=== PATIENT | female | born 1990 | race Caucasian/White ===

== ENCOUNTER 2016-10-26 03:15 | Emergency (ER) | payer BC ==
--- NOTE | 2016-10-26 03:40 | ED NURSING NOTES ---
Clinical Report - Nurses [facility] [address] [place] [address] 10/26/2016 3:17 Patient: MEGHAN VELASCO TRIAGE Triage time 03:25. Acuity: LEVEL 5. --03:32 Romeo Morales R.N. 03:20 10/26/16. BP: 119/73. HR: 72. RR: 16. O2 saturation: 100%. Temp: 98.1 F. Pain level now: 08/18. --03:32 Romeo Morales R.N. Chief Complaint: SKIN RASH and SKIN LESION and POSSIBLE INSECT BITE --03:55 Romeo Morales R.N. Weight: 99.7 kg stated. Height/Length: 68 inches Per Patient. BMI: 33.4. --03:31 Romeo Morales R.N. Medications FLUoxetine HCl Oral (Capsule 10 mg) 1 capsule, at bedtime. --03:29 Romeo Morales R.N. Control Pills. --03:30 Romeo Morales R.N. Allergies No Known Drug Allergy. --03:27 Romeo Morales R.N. History Historian: patient. Accompanied by (boyfriend). Reported as located on the left leg. ( woke up at 0230 with burning pain/stinging and rash/blister on the left lower leg). Treatment SPEECH INSTRUCTOR: None. SOCIAL HX: Never smoker. History of occasional drug use: marijuana. --03:32 Romeo Morales R.N. PAST MEDICAL HX: Immunizations: up-to-date and has received tetanus within 10 years. --03:37 Romeo Morales R.N. PROBLEMS: Depression. --03:29 Romeo Morales R.N. Interventions ID band on patient. To treatment room. --03:32 Romeo Morales R.N. PHYSICAL ASSESSMENT Ambulatory to room. GENERAL / NEURO / PSYCH: Alert. The patient does not appear to be in acute distress. Oriented X 4. RESPIRATORY: Respirations not labored. CVS: Capillary refill less than 2 seconds. Pulses within normal limits. SKIN: Skin is warm. Skin rash on the left leg. Blister on the left leg. --03:35 Romeo Morales R.N. NURSING PROGRESS NOTES Head of bed elevated. Patient identifiers checked. Call light placed in reach. Side rails up x 1. Bed placed in lowest position. Patient ready for evaluation- chart flagged and ED physician notified. --03:33 Romeo Morales R.N. DISPOSITION / DISCHARGE Departure time: 035. Condition at departure: unchanged. No learning barriers present. Discharge instructions provided and reviewed with the patient. Reviewed medication(s) side effects, precautions, dosing and course information. Prescription(s) given to the patient. Patient verbalized understanding. Written instructions provided in Palestinian. The patient was discharged home and accompanied by boyfriend. She left the Emergency Department via private vehicle. Driving (boyfriend). --03:54 Romeo Morales R.N. Locked/Released at 10/26/2016 3:56 by Romeo Morales R.N.
--- NOTE | 2016-10-26 03:40 | ED NURSING NOTES ---
Clinical Report - Nurses [facility] [address] [place] [address] 10/26/2016 3:17 Patient: MEGHAN VELASCO TRIAGE Triage time 03:25. Acuity: LEVEL 5. --03:32 Romeo Morales R.N. 03:20 10/26/16. BP: 119/73. HR: 72. RR: 16. O2 saturation: 100%. Temp: 98.1 F. Pain level now: 08/18. --03:32 Romeo Morales R.N. Chief Complaint: SKIN RASH and SKIN LESION and POSSIBLE INSECT BITE --03:55 Romeo Morales R.N. Weight: 99.7 kg stated. Height/Length: 68 inches Per Patient. BMI: 33.4. --03:31 Romeo Morales R.N. Medications FLUoxetine HCl Oral (Capsule 10 mg) 1 capsule, at bedtime. --03:29 Romeo Morales R.N. Control Pills. --03:30 Romeo Morales R.N. Allergies No Known Drug Allergy. --03:27 Romeo Morales R.N. History Historian: patient. Accompanied by (boyfriend). Reported as located on the left leg. ( woke up at 0230 with burning pain/stinging and rash/blister on the left lower leg). Treatment CARDIOVASCULAR OR NURSE: None. SOCIAL HX: Never smoker. History of occasional drug use: marijuana. --03:32 Romeo Morales R.N. PAST MEDICAL HX: Immunizations: up-to-date and has received tetanus within 10 years. --03:37 Romeo Morales R.N. PROBLEMS: Depression. --03:29 Romeo Morales R.N. Interventions ID band on patient. To treatment room. --03:32 Romeo Morales R.N. PHYSICAL ASSESSMENT Ambulatory to room. GENERAL / NEURO / PSYCH: Alert. The patient does not appear to be in acute distress. Oriented X 4. RESPIRATORY: Respirations not labored. CVS: Capillary refill less than 2 seconds. Pulses within normal limits. SKIN: Skin is warm. Skin rash on the left leg. Blister on the left leg. --03:35 Romeo Morales R.N. NURSING PROGRESS NOTES Head of bed elevated. Patient identifiers checked. Call light placed in reach. Side rails up x 1. Bed placed in lowest position. Patient ready for evaluation- chart flagged and ED physician notified. --03:33 Romeo Morales R.N. DISPOSITION / DISCHARGE Departure time: 035. Condition at departure: unchanged. No learning barriers present. Discharge instructions provided and reviewed with the patient. Reviewed medication(s) side effects, precautions, dosing and course information. Prescription(s) given to the patient. Patient verbalized understanding. Written instructions provided in Sudanese. The patient was discharged home and accompanied by boyfriend. She left the Emergency Department via private vehicle. Driving (boyfriend). --03:54 Romeo Morales R.N. Locked/Released at 10/26/2016 3:56 by Romeo Morales R.N.
--- NOTE | 2016-10-26 03:40 | ED CLINICAL REPORT ---
Clinical Report - Physicians/Mid Levels [facility] [address] [place] [address] 10/26/2016 3:17 Patient: MEGHAN VELASCO Time Seen: 0320. Arrived- By private vehicle. Historian- patient. HISTORY OF PRESENT ILLNESS Chief Complaint: INSECT BITE. This started today and is still present (unchanged). It was abrupt in onset and has been constant but is not gone now. It is described as painful. It has been located on the left knee (lateral). A possible cause has been identified (insect bite maybe a "spider"). Similar symptoms previously: None. Recent medical care: Not recently seen/assessed. REVIEW OF SYSTEMS No fever, chills or difficulty breathing. All systems otherwise negative, except as recorded above. PAST HISTORY See nurses notes. Tetanus immunization status is up-to-date. Medications: Control Pills. FLUoxetine HCl Oral (Capsule 10 mg) 1 capsule, at bedtime. Allergies: No Known Drug Allergy. SOCIAL HISTORY Never smoker. History of occasional drug use: marijuana. No alcohol use. No recent travel. Is a local resident. ADDITIONAL NOTES The nursing notes have been reviewed. PHYSICAL EXAM Vital Signs: 10/26/2016 03:20 BP: 119/73. HR: 72. RR: 16. O2 saturation: 100%. Temp: 98.1 F. Pain level now: 2/10. Blood pressure normal. Oxygen saturation normal. Appearance: Alert. Oriented X3. No acute distress. Eyes: Pupils equal, round and reactive to light. Conjunctivae and eyelids normal. ENT: Ears normal. Nose normal. Pharynx normal. Neck: Neck supple. CVS: Normal heart rate and rhythm. Heart sounds normal. Respiratory: No respiratory distress. Breath sounds normal. Chest nontender. Abdomen: Nontender. No organomegaly. Skin: (small area of Hyperemia to the left lateral knee irregular shape with 2 small areas that seem to coalesce at the edges. Edges are well demarcated. Nonraised. No vesicles. Blanchable. Mild tenderness. No masses. Small area of less hyperemia in the center of the area. no involvement of the palms or soles. o crepitus.). Extremities: Normal external inspection. Extremities nontender. PROGRESS AND PROCEDURES Course of Care: The patient is a pleasant 26-year-old female [place] past medical history presenting for evaluation of rash/lesion to the left lower extremity. At this time differential diagnosis includes insect bite versus cellulitis versus allergic reaction versus early abscess. No signs of fluid collections at this time. Patient is nontoxic. No signs of anaphylaxis. Patient will be managed for the lesion as potential early cellulitis/abscess. Benefits of antibiotic treatment outweigh the risks at this time. Because of the patient's reportbeen a increasedlikelihood ratio of MRSA infection. Patient be treated for the presumed cellulitisand potential MRSA infection with Keflex and Bactrim. Patient as been monitored here in the emergency department and reevaluated and found to be resting in bed and in no acute distress. Patient continues to be doing well and is nontoxic. Patient continues to have no signs of anaphylaxis. Discussed with the patient her workup here in the emergency department include home care, follow-up, and return precautions. All questions have been answered. The patient expressed understanding of these instructions and was agreeable to them. Do not fill patient is to be admitted to the hospital require further emergency department workup/evaluation. Vital signs here in the emergency department and noted to be unremarkable. Disposition: Discharged. Condition: good. CLINICAL IMPRESSION 10/26/2016 03:20 BP: 119/73. HR: 72. RR: 16. O2 saturation: 100%. Temp: 98.1 F. Pain level now: 2/10. Blood pressure normal. Oxygen saturation normal. Cellulitis of the left knee (lateral). INSTRUCTIONS Warnings: GENERAL WARNINGS: Return or contact your physician immediately if your condition worsens or changes unexpectedly, if not improving as expected, or if other problems arise. Specifically return if pain, vomiting, bleeding, breathing difficulty or fever. Your Current Medications: CONTINUE TAKING THE FOLLOWING MEDICATIONS: Control Pills*. FLUoxetine HCl Oral : Capsule 10 mg, 1 capsule at bedtime. Prescription Medications: Bactrim DS 800 mg / 160 mg: take 1 tablet orally every 12 hours for 10 days. No refill. Substitution is permissible. (Disp 20 tabs) Keflex 500 mg: take 1 capsule orally every 8 hours for 10 days. No refill. Substitution is permissible. (disp 30 caps) Hydroxyzine 50 mg: take 1 orally every 8 hours as needed for itching. Dispense twenty (20). No refill. Follow-up: Return to the emergency department as needed. Follow up with your doctor in three days. Reason for referral: recheck today's concerns. Summary of care provided to patient via paper. Screening today revealed the patient's blood pressure to be in the normal range. The patient should follow up with a primary care provider for blood pressure management. Understanding of the discharge instructions verbalized by patient. (Electronically signed by Cristobal Ch Dr. 10/28/2016 5:48)
--- NOTE | 2016-10-28 05:49 | ED MAR SUMMARY ---
..... Medication Administration Record [facility] [address], [place] [id number] Patient: MEGHAN VELASCO Visit ID: [id number] 26y, F Weight: 99.7 kg Height/Length: 68 in BMI: 33.4 ALLERGIES: No Known Drug Allergy
--- NOTE | 2016-10-28 05:49 | ED MED RECONCILIATION SUMMARY ---
Patient: MEGHAN VELASCO Medication Reconciliation Report [facility] VisitID: [id number] [address] [place] [address] 26y, F Registration Date/Time: 10/26/2016 Weight: 99.7 kg Height/Length: 68 in. BMI: 33.4 ALLERGIES: No Known Drug Allergy The patient's Home Medications are listed below: CONTINUE TAKING THE FOLLOWING MEDICATIONS: Control Pills FLUoxetine HCl Oral (10 mg) 1 capsule, at bedtime The source(s) of the original Home Medication information: Not obtained. The following Medications were given to the patient in the Emergency Department: None. The following Medications were prescribed to the patient: Bactrim DS 800 mg / 160 mg: take 1 tablet orally every 12 hours for 10 days. No refill. Substitution is permissible.(Disp 20 tabs) -- Cristobal Ch Dr. Keflex 500 mg: take 1 capsule orally every 8 hours for 10 days. No refill. Substitution is permissible.(disp 30 caps) -- Cristobal Ch Dr. Hydroxyzine 50 mg: take 1 orally every 8 hours as needed for itching. Dispense twenty (20). No refill. -- Cristobal Ch Dr.
--- NOTE | 2016-10-28 05:49 | ED MAR SUMMARY ---
..... Medication Administration Record [facility] [address] [place], [place] [id number] Patient: MEGHAN VELASCO Visit ID: [id number] 26y, F Weight: 99.7 kg Height/Length: 68 in BMI: 33.4 ALLERGIES: No Known Drug Allergy
--- NOTE | 2016-10-28 05:49 | ED DISCHARGE INSTRUCTIONS ---
Patient: MEGHAN VELASCO General Instructions [facility] VisitID: [id number] [place] [address] 26y, F Registration Date/Time: 10/26/2016 10/26/2016 03:20 BP: 119/73. HR: 72. RR: 16. O2 saturation: 100%. Temp: 98.1 F. Pain level now: 2/10. Blood pressure normal. Oxygen saturation normal. Cellulitis of the left knee (lateral). INSTRUCTIONS Warnings: GENERAL WARNINGS: Return or contact your physician immediately if your condition worsens or changes unexpectedly, if not improving as expected, or if other problems arise. Specifically return if pain, vomiting, bleeding, breathing difficulty or fever. Your Current Medications: CONTINUE TAKING THE FOLLOWING MEDICATIONS: Control Pills*. FLUoxetine HCl Oral : Capsule 10 mg, 1 capsule at bedtime. Prescription Medications: Bactrim DS 800 mg / 160 mg: take 1 tablet orally every 12 hours for 10 days. No refill. Substitution is permissible. (Disp 20 tabs) Keflex 500 mg: take 1 capsule orally every 8 hours for 10 days. No refill. Substitution is permissible. (disp 30 caps) Hydroxyzine 50 mg: take 1 orally every 8 hours as needed for itching. Dispense twenty (20). No refill. Follow-up: Return to the emergency department as needed. Follow up with your doctor in three days. Reason for referral: recheck today's concerns. Summary of care provided to patient via paper. Screening today revealed the patient's blood pressure to be in the normal range. The patient should follow up with a primary care provider for blood pressure management. Understanding of the discharge instructions verbalized by patient. ADDITIONAL INFORMATION Cellulitis You have an infection of the skin known as cellulitis. This usually starts with a scrape, cut, insect bite, blister or other opening in the skin which becomes infected. This is a serious condition. It must be watched closely to be sure the infection is not spreading. With antibiotic treatment, the size of the red area will gradually shrink in size until the skin returns to normal. This will take 7-10 days. The red area should never increase in size once the antibiotic medicine has been started. Occasionally, an infection will be resistant to one antibiotic and another one will have to be used. Home Care: 1) Limit the use of the affected part, since excess movement can cause the infection to spread. 2) If the infection is on your leg, walk as little as possible during the first few days of the treatment. Keep your leg elevated while sitting. This will reduce swelling. 3) Take all of the antibiotic medicine exactly as directed until it is gone. Be careful not to miss any doses, especially during the first seven days. Follow Up with your doctor or this facility as directed. Check the infected area daily for the warning signs listed below. Get Prompt Medical Attention if any of the following occur: -- Spreading area of redness -- Increasing swelling or pain -- Appearance of pus or drainage -- Fever over 100.4 F (38.0 C) oral, or over 101.4 F (38.6 C) rectal, after two days on antibiotics Sulfamethoxazole, Trimethoprim Oral tablet What is this medicine? SULFAMETHOXAZOLE; TRIMETHOPRIM or SMX-TMP (suhl fuh meth OK logan zohl; trye METH oh prim) is a combination of a sulfonamide antibiotic and a second antibiotic, trimethoprim. It is used to treat or prevent certain kinds of bacterial infections. It will not work for colds, flu, or other viral infections. How should I use this medicine? Take this medicine by mouth with a full glass of water. Follow the directions on the prescription label. Take your medicine at regular intervals. Do not take it more often than directed. Do not skip doses or stop your medicine early. Talk to your hemmer automatic regarding the use of this medicine in children. Special care may be needed. This medicine has been used in children as young as 2 months of age. What side effects may I notice from receiving this medicine? Side effects that you should report to your doctor or health complex care nurse practitioner as soon as possible: allergic reactions like skin rash or hives, swelling of the face, lips, or tongue breathing problems fever or chills, sore throat irregular heartbeat, chest pain joint or muscle pain pain or difficulty passing urine red pinpoint spots on skin redness, blistering, peeling or loosening of the skin, including inside the mouth unusual bleeding or bruising unusually weak or tired yellowing of the eyes or skin Side effects that usually do not require medical attention (report to your doctor or health complex care nurse practitioner if they continue or are bothersome): diarrhea dizziness headache loss of appetite nausea, vomiting nervousness What may interact with this medicine? Do not take this medicine with any of the following medications: aminobenzoate potassium dofetilide metronidazole This medicine may also interact with the following medications: MINISTERIO inhibitors like benazepril, enalapril, lisinopril, and ramipril cyclosporine digoxin diuretics indomethacin medicines for diabetes methenamine methotrexate phenytoin potassium supplements pyrimethamine sulfinpyrazone tricyclic antidepressants warfarin What if I miss a dose? If you miss a dose, take it as soon as you can. If it is almost time for your next dose, take only that dose. Do not take double or extra doses. Where should I keep my medicine? Keep out of the reach of children. Store at room temperature between 20 to 25 degrees C (68 to 77 degrees F). Protect from light. Throw away any unused medicine after the expiration date. What should I tell my health care provider before I take this medicine? They need to know if you have any of these conditions: anemia asthma being treated with anticonvulsants if you frequently drink alcohol containing drinks kidney disease liver disease low level of folic acid or [id number] dehydrogenase poor nutrition or malabsorption porphyria severe allergies thyroid disorder an unusual or allergic reaction to sulfamethoxazole, trimethoprim, sulfa drugs, other medicines, foods, dyes, or preservatives or trying to get breast-feeding What should I watch for while using this medicine? Tell your doctor or health complex care nurse practitioner if your symptoms do not improve. Drink several glasses of water a day to reduce the risk of kidney problems. Do not treat diarrhea with over the counter products. Contact your doctor if you have diarrhea that lasts more than 2 days or if it is severe and watery. This medicine can make you more sensitive to the sun. Keep out of the sun. If you cannot avoid being in the sun, wear protective clothing and use a sunscreen. Do not use sun lamps or tanning beds/booths. Cephalexin Monohydrate Oral tablet What is this medicine? CEPHALEXIN (sef a BETY in) is a cephalosporin antibiotic. It is used to treat certain kinds of bacterial infections It will not work for colds, flu, or other viral infections. How should I use this medicine? Take this medicine by mouth with a full glass of water. Follow the directions on the prescription label. This medicine can be taken with or without food. Take your medicine at regular intervals. Do not take your medicine more often than directed. Take all of your medicine as directed even if you think you are better. Do not skip doses or stop your medicine early. Talk to your hemmer automatic regarding the use of this medicine in children. While this drug may be prescribed for selected conditions, precautions do apply. What side effects may I notice from receiving this medicine? Side effects that you should report to your doctor or health complex care nurse practitioner as soon as possible: allergic reactions like skin rash, itching or hives, swelling of the face, lips, or tongue breathing problems pain or trouble passing urine redness, blistering, peeling or loosening of the skin, including inside the mouth severe or watery diarrhea unusually weak or tired yellowing of the eyes, skin Side effects that usually do not require medical attention (report to your doctor or health complex care nurse practitioner if they continue or are bothersome): gas or heartburn genital or anal irritation headache joint or muscle pain nausea, vomiting What may interact with this medicine? probenecid some other antibiotics What if I miss a dose? If you miss a dose, take it as soon as you can. If it is almost time for your next dose, take only that dose. Do not take double or extra doses. There should be at least 4 to 6 hours between doses. Where should I keep my medicine? Keep out of the reach of children. Store at room temperature between 59 and 86 degrees F (15 and 30 degrees C). Throw away any unused medicine after the expiration date. What should I tell my health care provider before I take this medicine? They need to know if you have any of these conditions: kidney disease stomach or intestine problems, especially colitis an unusual or allergic reaction to cephalexin, other cephalosporins, penicillins, other antibiotics, medicines, foods, dyes or preservatives or trying to get breast-feeding What should I watch for while using this medicine? Tell your doctor or health complex care nurse practitioner if your symptoms do not begin to improve in a few days. Do not treat diarrhea with over the counter products. Contact your doctor if you have diarrhea that lasts more than 2 days or if it is severe and watery. If you have diabetes, you may get a false-positive result for sugar in your urine. Check with your doctor or health complex care nurse practitioner. Hydroxyzine Pamoate Oral capsule What is this medicine? HYDROXYZINE (amish DROX i zeen) is an antihistamine. This medicine is used to treat allergy symptoms. It is also used to treat anxiety and tension. This medicine can be used with other medicines to induce sleep before surgery. How should I use this medicine? Take this medicine by mouth with a full glass of water. Follow the directions on the prescription label. You may take this medicine with food or on an empty stomach. Take your medicine at regular intervals. Do not take your medicine more often than directed. Talk to your hemmer automatic regarding the use of this medicine in children. Special care may be needed. While this drug may be prescribed for children as young as 6 years of age for selected conditions, precautions do apply. Patients over 65 years old may have a stronger reaction and need a smaller dose. What side effects may I notice from receiving this medicine? Side effects that you should report to your doctor or health complex care nurse practitioner as soon as possible: fast or irregular heartbeat difficulty passing urine seizures slurred speech or confusion tremor Side effects that usually do not require medical attention (report to your doctor or health complex care nurse practitioner if they continue or are bothersome): constipation drowsiness fatigue headache stomach upset What may interact with this medicine? alcohol barbiturate medicines for sleep or seizures medicines for colds, allergies medicines for depression, anxiety, or emotional disturbances medicines for pain medicines for sleep muscle relaxants What if I miss a dose? If you miss a dose, take it as soon as you can. If it is almost time for your next dose, take only that dose. Do not take double or extra doses. Where should I keep my medicine? Keep out of the reach of children. Store at room temperature between 15 and 30 degrees C (59 and 86 degrees F). Keep container tightly closed. Throw away any unused medicine after the expiration date. What should I tell my health care provider before I take this medicine? They need to know if you have any of these conditions: any chronic illness difficulty passing urine glaucoma heart disease kidney disease liver disease lung disease an unusual or allergic reaction to hydroxyzine, cetirizine, other medicines, foods, dyes, or preservatives or trying to get breast-feeding What should I watch for while using this medicine? Tell your doctor or health complex care nurse practitioner if your symptoms do not improve. You may get drowsy or dizzy. Do not drive, use machinery, or do anything that needs mental alertness until you know how this medicine affects you. Do not stand or sit up quickly, especially if you are an older patient. This reduces the risk of dizzy or fainting spells. Alcohol may interfere with the effect of this medicine. Avoid alcoholic drinks. Your mouth may get dry. Chewing sugarless gum or sucking hard candy, and drinking plenty of water may help. Contact your doctor if the problem does not go away or is severe. This medicine may cause dry eyes and blurred vision. If you wear contact lenses you may feel some discomfort. Lubricating drops may help. See your eye doctor if the problem does not go away or is severe. If you are receiving skin tests for allergies, tell your doctor you are using this medicine. You have been given the following additional information: Cellulitis Sulfamethoxazole, Trimethoprim Oral tablet Cephalexin Monohydrate Oral tablet Hydroxyzine Pamoate Oral capsule (Electronically signed by Cristobal Ch Dr. 10/28/2016 5:48)
--- NOTE | 2016-10-28 05:49 | ED MED RECONCILIATION SUMMARY ---
Patient: MEGHAN VELASCO Medication Reconciliation Report Merged With [facility] VisitID: [id number] [address] [place] [address] 26y, F Registration Date/Time: 10/26/2016 Weight: 99.7 kg Height/Length: 68 in. BMI: 33.4 ALLERGIES: No Known Drug Allergy The patient's Home Medications are listed below: CONTINUE TAKING THE FOLLOWING MEDICATIONS: Control Pills FLUoxetine HCl Oral (10 mg) 1 capsule, at bedtime The source(s) of the original Home Medication information: Not obtained. The following Medications were given to the patient in the Emergency Department: None. The following Medications were prescribed to the patient: Bactrim DS 800 mg / 160 mg: take 1 tablet orally every 12 hours for 10 days. No refill. Substitution is permissible.(Disp 20 tabs) -- Cristobal Ch Dr. Keflex 500 mg: take 1 capsule orally every 8 hours for 10 days. No refill. Substitution is permissible.(disp 30 caps) -- Cristobal Ch Dr. Hydroxyzine 50 mg: take 1 orally every 8 hours as needed for itching. Dispense twenty (20). No refill. -- Cristobal Ch Dr.
== END 2016-10-26 03:50 | disposition home or self-care (01) ==
LOC: ED SRH 03:15
DX: L03.116 Cellulitis of left lower limb (principal); W57.XXXA Bitten or stung by nonvenomous insect and other nonvenomous arthropods, initial encounter